=== PATIENT | female | born 1935 | race Caucasian/White ===

== ENCOUNTER → 2016-11-16 | Outpatient (CLI) | payer OTHER ==
[~2016-11-16] MED LIST: CALC-20 PO; CALC-393 PO; CHOL100010 PO; CHOL200010 PO; CHOL4POW5 PO; CRFL PO; CYAN100020 PO; CYAN100048 PO; CYM/30 PO; DENO60SO INJ; DILT-117 PO; FURO-85 PO; GLIM4TAB2 PO; HYDR-4383 PO; IMD/2 PO; INSUINJ4 SC; MAGN500T4 PO; METF-384 PO; MGNG500 PO; MORP1TAB12 PO; MULT-506 PO; NRV/5 PO; OMEG-112 PO; OXYC-106 PO; OXYC5TAB PO; OXYSR/10 PO; TRAM-10 PO; TRIA0.25 PO; ULT50X PO; VALS40TA2 PO; WARF5TAB7 PO
== END | disposition home or self-care (01) ==
LOC: C.RC 17:19
PROVIDERS: ATTEND Internal Medicine Pulmonary Disease
DX: I48.91 Unspecified atrial fibrillation (principal); G47.00 Insomnia, unspecified; I27.2 Other secondary pulmonary hypertension

== ENCOUNTER → 2016-11-24 | Outpatient (CLI) | payer OTHER ==
[2016-11-24 14:25] LABS: BASO % 0.1 %; BASO ABS # 0.01 K/uL (0-0.2); COMPLETE YES; HEMATOCRIT 35.2 % (37-47); IG% 0.4 %; LYMPH % 4.3 %; LYMPH ABS # 0.73 K/uL (1.2-3.4); MEAN CELL VOLUME 91.2 fL (80-100); MEAN CORPUSCULAR HEMOGLOBIN 28.8 pg (25-34); MEAN CORPUSCULAR HGB CONC 31.5 g/dl (32-36); MEAN PLATELET VOLUME 10.3 fL (7.4-10.4); MONO % 10.7 %; NEUT % 84.5 %; PLATELET COUNT 177 K/uL (130-400); RED BLOOD COUNT 3.86 M/uL (4.2-5.4); WHITE BLOOD COUNT 17.14 K/uL (4.8-10.8)
== END | disposition home or self-care (01) ==
LOC: C.LAB1850 11:49
PROVIDERS: ATTEND Internal Medicine Pulmonary Disease
DX: G47.00 Insomnia, unspecified (principal); I48.91 Unspecified atrial fibrillation; I27.2 Other secondary pulmonary hypertension

== ENCOUNTER → 2017-01-26 | Outpatient (CLI) | payer OTHER ==
[2017-01-26 12:19] LABS: BLOOD UREA NITROGEN 23 mg/dl (7-18); BUN/CREATININE RATIO 26.5 (10-20); CALCIUM 8.3 mg/dl (8.5-10.1); CARBON DIOXIDE 29 mmol/L (21-32); CHLORIDE 105 mmol/L (98-107); CREATININE 0.85 mg/dl (0.60-1.20); GLUCOSE 319 mg/dl (70-99); POTASSIUM 4.4 mmol/L (3.5-5.1); SODIUM 141 mmol/L (136-145)
[2017-01-26 12:29] LABS: BETA-HYDROXYBUTYRATE 1.02 mg/dL (0.2-2.81)
== END | disposition home or self-care (01) ==
LOC: C.LAB1850 11:06
PROVIDERS: ATTEND Physician Assistant
DX: I51.9 Heart disease, unspecified (principal); I48.91 Unspecified atrial fibrillation

== ENCOUNTER → 2017-03-26 | Outpatient (CLI) | payer OTHER ==
[2017-03-26 13:12] LABS: COMPLETE YES; EOS % 0.2 %; HEMATOCRIT 33.7 % (37-47); LYMPH % 16.5 %; LYMPH ABS # 0.68 K/uL (1.2-3.4); MEAN CELL VOLUME 88.2 fL (80-100); MEAN CORPUSCULAR HEMOGLOBIN 27.2 pg (25-34); MEAN CORPUSCULAR HGB CONC 30.9 g/dl (32-36); MEAN PLATELET VOLUME 9.1 fL (7.4-10.4); MONO % 7.8 %; NEUT % 75.5 %; PLATELET COUNT 189 K/uL (130-400); RED BLOOD COUNT 3.82 M/uL (4.2-5.4); WHITE BLOOD COUNT 4.11 K/uL (4.8-10.8)
[2017-03-26 13:44] LABS: ESTIMATED AVERAGE GLUCOSE 137 mg/dl; HA1C FLAG Normal (Normal)
[2017-03-26 14:04] LABS: RATIO 352.5 mcg/mg (0-30.0)
[2017-03-26 14:24] LABS: BLOOD UREA NITROGEN 11 mg/dl (7-18); BUN/CREATININE RATIO 15.8 (10-20); CALCIUM 8.5 mg/dl (8.5-10.1); CARBON DIOXIDE 29 mmol/L (21-32); CHLORIDE 107 mmol/L (98-107); GLUCOSE 111 mg/dl (70-99); POTASSIUM 4.3 mmol/L (3.5-5.1); SODIUM 142 mmol/L (136-145)
== END | disposition home or self-care (01) ==
LOC: C.LAB1850 12:17
PROVIDERS: ATTEND Internal Medicine
DX: E11.9 Type 2 diabetes mellitus without complications (principal); D72.819 Decreased white blood cell count, unspecified

== ENCOUNTER → 2017-04-20 | Outpatient (CLI) | payer OTHER ==
[2017-04-20 13:26] LABS: COMPLETE YES; EOS % 0.2 %; HEMATOCRIT 31.7 % (37-47); IG% 0.4 %; LYMPH % 18.6 %; LYMPH ABS # 0.99 K/uL (1.2-3.4); MEAN CELL VOLUME 87.6 fL (80-100); MEAN CORPUSCULAR HEMOGLOBIN 26.8 pg (25-34); MEAN CORPUSCULAR HGB CONC 30.6 g/dl (32-36); MEAN PLATELET VOLUME 9.1 fL (7.4-10.4); MONO % 8.1 %; NEUT % 72.7 %; PLATELET COUNT 196 K/uL (130-400); RED BLOOD COUNT 3.62 M/uL (4.2-5.4); WHITE BLOOD COUNT 5.32 K/uL (4.8-10.8)
[2017-04-20 14:35] LABS: FERRITIN 41.9 ng/ml (8.0-388.0)
== END | disposition home or self-care (01) ==
LOC: C.LAB1850 11:22
PROVIDERS: ATTEND Internal Medicine
DX: D64.9 Anemia, unspecified (principal); I48.91 Unspecified atrial fibrillation

== ENCOUNTER → 2017-05-11 | Day surgery (SDC) | payer OTHER ==
[2017-05-02 10:45] VITALS: Ht 157.5 cm; Wt 50.0 kg
[~2017-05-11] VITALS: Ht 157.5 cm; Wt 50.0 kg
[~2017-05-11] MED LIST changes: -CALC-20 PO; -CHOL200010 PO; -CHOL4POW5 PO; -CRFL PO; -CYAN100048 PO; -HYDR-4383 PO; +LIDOCAINE HCL 2% 2 ML VIAL (20MG/ML) ONE; -MGNG500 PO; -MULT-506 PO; -NRV/5 PO; -OMEG-112 PO; -OXYC5TAB PO; -OXYSR/10 PO; +PROPOFOL IV EMULSION 10 MG/ML 20 ML VIAL IV ONE; +SODIUM CHLORIDE 0.9% 500ML 500 ML IV ONE; -TRAM-10 PO; -ULT50X PO
--- NOTE | 2017-05-11 10:08 | Endo History and Physical ---
History & Physical Date of Service: May 11, 2017. Chief Complaint: Anemia Referring Physician: Pro History of Present Illness Crohns disease, longstanding. Hx gastrectomy for perforated ulcer. Past Medical History Diabetes, Osteoporosis, Arthritis, Fractures, Gastrointestinal Disorder, Anxiety , Hypertension Past Surgical History Hx Cardiac Surgery: No Hx Internal Defibrillator: No Hx Pacemaker: No Hx Abdominal Surgery: Yes (COLON RESECTION, GASTRECTOMY AFTER PERFORATION, APPY , LADONNA) Hx of Implantable Prosthesis: No Hx Post-Op Nausea and Vomiting: No Hx Cancer Surgery: No Hx Thoracic Surgery: No Hx Orthopedic: Yes (KYPHOPLASTY) Hx Urinary Tract Surgery: No Family History Esophogeal CA Social History Smoking Status: Former Smoker Hx Substance Use: No Hx Alcohol Use: Yes (socially) Allergies Coded Allergies: Lactose Intolerance (GI) (Verified Allergy, Intermediate, Diarrhea and pain, 05/11/17) Aspirin (Verified Adverse Reaction, Intermediate, GI BLEED, 05/11/17) Adhesives (Verified Adverse Reaction, Mild, Redness, 05/11/17) Current Medications Reported Home Medications Medications Dose Route/Sig Max Daily Dose Days Date Category Dose Instructions Vitamin B12 (Cyanocobalamin) 1,000 Mcg Tab 1 Tab PO QPM 05/02/17 Reported Magnesium (Magnesium Oxide (Mg Supplement) 500 Mg Tab 1 Tab PO QPM 05/02/17 Reported Vitamin D (Cholecalciferol) 1,000 Unit Tab 1 Tab PO QPM 05/02/17 Reported Calcium (Calcium Carbonate) 600 Mg Tab 1 Tab PO BID 05/02/17 Reported Prolia (Denosumab) 60 Mg/Ml Magy 1 Dose INJ [id number] 05/02/17 Reported Cymbalta (Duloxetine HCl) 30 Mg Cap 1 Cap PO BID 30 05/02/17 Reported Percocet 10MG/325MG (Oxycodone/Acetaminophen) Tab 1 Tab PO Q6H PRN 05/02/17 Reported Morphine Sulfate Er (Morphine Sulfate) 30 Mg Tab 1 Tab PO TID PRN 30 05/02/17 Reported Halcion (Triazolam) 0.25 Mg Tab 3-4 Tab PO HS 05/02/17 Reported Imodium (Loperamide HCl) 2 Mg Cap 2 Mg PO BID 05/02/17 Reported Jantoven (Warfarin Sodium) 5 Mg Tab 5 Mg PO DAILY 05/02/17 Reported TAKES 1 TAB 5X WEEKLY TAKES 0.5 TAB 2 X WEEKLY Diovan (Valsartan) 40 Mg Tab 40 Mg PO QPM 05/02/17 Reported Lasix (Furosemide) 20 Mg Tab 20 Mg PO QAM 05/02/17 Reported Tiazac (Diltiazem HCl) 300 Mg Capcr 300 Mg PO QAM 05/02/17 Reported Glimepiride 4 Mg Tab 0.5 Tab PO QAM 90 05/02/17 Reported Glucophage (Metformin Hcl) 1,000 Mg Tab 1,000 Mg PO Q12 06/24/15 Reported Lantus Solostar Pen (Insulin Glargine) 100 Unit/ Inj 4 Units SC QPM 06/24/15 Reported Lantus Solostar Pen (Insulin Glargine) 100 Unit/ Inj 10 Units SC QAM 06/24/15 Reported Vital Signs Weight (Kilograms): 50 Height (Feet): 5 Height (Inches): 2 Date Time Temp Pulse Resp B/P (MAP) Pulse Ox O2 Delivery O2 Flow Rate FiO2 05/11/17 09:50 36.7 94 20 172/70 (104) 96 Room Air Physical Exam General Appearance: WD/WN, no apparent distress Respiratory/Chest: Auscultation: breath sounds normal, no wheezing Cardiovascular: Heart Auscultation: RRR, no murmurs Abdomen: Inspection & Palpation: soft, no tenderness, guarding & rebound Assessment and Plan EGD and colonoscopy.
--- NOTE | 2017-05-11 10:42 | GI REPORT ---
Procedure Date: 05/11/2017 10:08 AM Procedure: Upper GI endoscopy Indications: Iron deficiency anemia, Assessment following Billroth I, Crohn's disease Medicines: Monitored Anesthesia Care Complications: No immediate complications. Estimated blood loss: None. Estimated Blood Loss: Estimated blood loss: none. Procedure: Pre-Anesthesia Assessment: - Prior to the procedure, a History and Physical was performed, and patient medications, allergies and sensitivities were reviewed. The patient's tolerance of previous anesthesia was reviewed. - ASA Grade Assessment: III - A patient with severe systemic disease. After obtaining informed consent, the endoscope was passed under direct vision. Throughout the procedure, the patient's blood pressure, pulse, and oxygen saturations were monitored continuously. The scope was introduced through the mouth, and advanced to the third part of duodenum. The upper GI endoscopy was accomplished with ease. The patient tolerated the procedure well. Findings: The upper third of the esophagus, middle third of the esophagus and lower third of the esophagus were normal. The Z-line was regular and was found 37 cm from the incisors. Diffuse moderate inflammation characterized by adherent blood and erythema was found in the entire examined stomach. Biopsies were taken with a cold forceps for Helicobacter pylori testing. Varices were found in the entire examined stomach. Evidence of a patent Billroth I gastroduodenostomy was found. A gastric pouch was found. The gastroduodenal anastomosis was characterized by healthy appearing mucosa. This was traversed. Normal mucosa was found in the entire duodenum. Biopsies for histology were taken with a cold forceps for evaluation of celiac disease. A diverticulum was found in the second part of the duodenum. Verification of patient identification for the specimens was done by the physician and nurse using the patient's name, date and medical record number. Impression: - Normal upper third of esophagus, middle third of esophagus and lower third of esophagus. - Z-line regular, 37 cm from the incisors. - Gastritis. Biopsied. - Gastric varices. - Patent Billroth I gastroduodenostomy was found, characterized by healthy appearing mucosa. - Normal mucosa was found in the entire examined duodenum. Biopsied. - Duodenal diverticulum. Recommendation: - Await pathology results. - Perform a colonoscopy today. Amado Mcclain M.D. Amado Mcclain MD 05/11/2017 10:29:23 AM This report has been signed electronically. Note Initiated On: 05/11/2017 10:08 AM I attest to the content of the Intraoperative Record and orders documented therein, exceptions below
--- NOTE | 2017-05-11 10:56 | Discharge Instructions ---
Endoscopy Patient Instructions Date / Procedure(s) Performed May 11, 2017. Colonoscopy, EGD Allergy Information Coded Allergies: Lactose Intolerance (GI) (Verified Allergy, Intermediate, Diarrhea and pain, 05/11/17) Aspirin (Verified Adverse Reaction, Intermediate, GI BLEED, 05/11/17) Adhesives (Verified Adverse Reaction, Mild, Redness, 05/11/17) Discharge Date / Findings May 11, 2017. Gastric varices, gastritis; normal colon. Biopsies pending. Medication Instructions Stopped Medication(s): Coumadin stopped 05/06/17 Metformin stopped 05/08/17 Restart Stopped Medication(s): Restart medications today. Provider Instructions Activity Restrictions - No exercising or heavy lifting for 24 hours. - Do not drink alcohol the day of the procedure. - Do not drive a car or operate machinery until the day after the procedure. - Do not make any important decisions or sign important papers in 24 hours after the procedure. Following Day: - Return to full activity which may include returning to work/school. Diet Start your diet with liquids and light foods (jello, soup, juice, toast). Then eat your usual diet if not nauseated. Treatment For Common After Affects For mild abdominal pain, bloating, or excessive gas: - Rest - Eat lightly - Lie on right side Follow-Up Information Follow-up with Pro as scheduled Anesthesia Information What You Should Know You have had a procedure that required some medicine to reduce anxiety and discomfort. This treatment is called moderate sedation. After receiving the treatment, you may be sleepy, but you will be able to breathe on your own. The effects of the treatment may last for several hours. Follow these instructions along with Activity/Diet recommendations noted above: * Do NOT do anything where dizziness or clumsiness would be dangerous. * Rest quietly at home today, then you can be up and about tomorrow. * Have a responsible person stay with you the rest of today. * You may have had an I.V. today. If so, you may take the dressing off later today. Recommendations Call your doctor if: * Trouble breathing * Continuous vomiting for more than 24 hours * Temperature above 101 degrees * Severe abdominal pain or bloating * Pain not relieved by pain medicine ordered * There is increased drainage or redness from any incision * A large amount of rectal bleeding greater than 2-3 tablespoons. (If you had a polyp/s removed or have hemorrhoids, a small amount of blood - from the rectum is to be expected.) * You have any unanswered questions or concerns. IN THE EVENT OF A SERIOUS EMERGENCY, GO TO THE NEAREST EMERGENCY ROOM Your discharge instructions were prepared by provider Amado Mcclain. Patient Instructions Signature Page Clarisa Win Patient (or Guardian) Signature/Date: I have read and understand the instructions given to me by my caregivers. Caregiver/RN/Doctor Signature/Date: The above-named patient and/or guardian has received patient instructions on this date. + Original Patient Signature Page (only) stays with chart. Please make copy for patient.
--- NOTE | 2017-05-11 10:56 | GI REPORT ---
Procedure Date: 05/11/2017 10:24 AM Procedure: Colonoscopy Indications: High risk colon cancer surveillance: Crohn's disease, Incidental - Iron deficiency anemia Medicines: Monitored Anesthesia Care Complications: No immediate complications. Estimated blood loss: None. Estimated Blood Loss: Estimated blood loss: none. Procedure: Pre-Anesthesia Assessment: - Prior to the procedure, a History and Physical was performed, and patient medications, allergies and sensitivities were reviewed. The patient's tolerance of previous anesthesia was reviewed. - ASA Grade Assessment: III - A patient with severe systemic disease. After I obtained informed consent, the scope was passed under direct vision. Throughout the procedure, the patient's blood pressure, pulse, and oxygen saturations were monitored continuously. The scope was introduced through the anus and advanced to the terminal ileum, with identification of the appendiceal orifice and IC valve. The colonoscopy was performed with ease. The patient tolerated the procedure well. The quality of the bowel preparation was good. The bowel preparation used was split dose MIralax. Findings: The colon (entire examined portion) appeared normal although somewhat foreshortened. Biopsies were taken with a cold forceps for histology from the entire colon. Verification of patient identification for the specimen was done by the physician and nurse using the patient's name, date and medical record number. Impression: - The entire examined colon is normal to the terminal ileum with retroflexed views of the colon and terminal ileum. Biopsied. Recommendation: - Await pathology results. - Discharge patient to home (with escort). Amado Mcclain M.D. Amado Mcclain MD 05/11/2017 10:54:57 AM This report has been signed electronically. Note Initiated On: 05/11/2017 10:24 AM I attest to the content of the Intraoperative Record and orders documented therein, exceptions below
--- NOTE | 2017-05-11 11:13 | Anesthesiology Progress Note ---
Anesthesia Post Op Note Date & Time May 11, 2017 at 11:11 Vital Signs Pain Intensity: 0 Vital Signs Past 12 Hours Date Time Temp Pulse Resp B/P (MAP) Pulse Ox O2 Delivery O2 Flow Rate FiO2 05/11/17 10:56 76 20 135/81 (99) 97 Room Air 05/11/17 09:50 36.7 94 20 172/70 (104) 96 Room Air Notes The patient's FBG on arrival was 48 and she was asymptomatic. She was placed on D5LR andpost procedure her FBG was 116
[2017-05-11 11:33] VITALS: BP 170/75; PULSE 74; O2SAT 98
== END | disposition home or self-care (01) ==
LOC: C.GI 08:48
PROVIDERS: ATTEND Internal Medicine Gastroenterology
DX: I86.4 Gastric varices (principal); K29.70 Gastritis, unspecified, without bleeding; K50.90 Crohn's disease, unspecified, without complications; E11.9 Type 2 diabetes mellitus without complications; M81.0 Age-related osteoporosis without current pathological fracture; Z90.49 Acquired absence of other specified parts of digestive tract; Z80.0 Family history of malignant neoplasm of digestive organs